=== PATIENT | male | born 1950 | race Caucasian/White ===

== ENCOUNTER 2016-06-12 10:47 | Inpatient (IN) | payer MEDICARE, BC ==
[2016-06-12] MEDS ORDERED: HOME MEDICATION LIST NEEDED 1 EA EACH MC ONE (10:53)
[2016-06-12] MEDS ORDERED: NORMAL SALINE 1,000 ML IV SCH ×2 (11:00→18:00)
[2016-06-12] MEDS ORDERED: MORPHINE SULFATE 2 MG/ML SYR IV PRN (11:20)
[2016-06-12 11:49] LABS: BASOPHILS 0.3 % (0.0-2.0); EOSINOPHILS 0.1 % (0.0-6.0); HEMATOCRIT 42.1 % (42.0-54.0); HEMOGLOBIN 14.2 g/dL (14.0-18.0); LYMPHOCYTES 5.8 % (20.0-40.0); LYMPHOCYTES# 0.8 X 10^3uL (0.8-3.8); MEAN CELL VOLUME 87.9 fL (84.0-102.0); MEAN CORPUS. HGB CONCENTRATION 33.8 g/dL (32.0-36.0); MEAN CORPUSCULAR HEMOGLOBIN 29.7 pg (29.0-35.0); MEAN PLATELET VOLUME 7.6 fL (7.4-10.4); MONOCYTES 6.6 % (2.0-10.0); MONOCYTES# 0.9 X 10^3uL (0.2-1.0); NEUTROPHILS# 11.4 X 10^3uL (2.6-6.7); PLATELET COUNT 185 X 10^3uL (130-440); RED BLOOD COUNT 4.79 X 10^6uL (4.20-6.10); RED CELL DISTRIBUTION WIDTH 13.5 % (11.5-14.5); WHITE BLOOD COUNT 13.1 X 10^3uL (3.9-10.7)
[2016-06-12 11:50] LABS: A/G RATIO 1.1; ALKALINE PHOSPHATASE 58 U/L (38-126); ALT 51 U/L (21-72); AST 26 U/L (17-59); BILIRUBIN, TOTAL 1.1 mg/dL (0.2-1.3); BLOOD UREA NITROGEN 25 mg/dL (9-20); CHLORIDE 96 mmol/L (98-107); EST GLOMERULAR FILTRATION RATE > 60 mL/min; GLUCOSE 182 mg/dL (70-100); POTASSIUM 3.7 mmol/L (3.5-5.1); SODIUM 135 mmol/L (137-145); TOTAL PROTEIN 7.5 g/dL (6.3-8.2)
[2016-06-12 11:51] LABS: C-REACTIVE PROTEIN > 90.0 mg/L (<10.0)
[2016-06-12 11:58] LABS: NEUTROPHILS 87.2 % (54.0-75.0)
[2016-06-12] MEDS: HYDROcodone/APAP 5/325 MG 1 TAB TABLET PO PRN (12:26)
[2016-06-12] MEDS: CLINDAMYCIN/D5W 600 MG/50 ML 600 MG PIGGYBACK IV SCH ×2 (12:26→20:29)
[2016-06-12 12:35] LABS: ERYTHROCYTE SEDIMENTATION RATE 70 MM/HR (0-10)
[2016-06-12] MEDS: ACETAMINOPHEN ER 650 MG TAB.SR.8HR PO SCH ×2 (14:25→20:58)
[2016-06-12] MEDS: ENOXAPARIN SODIUM 30 MG/0.3 ML SYR SUBCUT SCH (14:26)
[2016-06-12] MEDS: VANCOMYCIN HCL 1,000 MG in NORMAL SALINE ADDVANTAGE 250 ML IV SCH ×2 (18:51→20:33)
[2016-06-12] MEDS ORDERED: VANCOMYCIN HCL 1,000 MG/20 ML VIAL ONE (18:52)
[2016-06-12] MEDS ORDERED: VANCOMYCIN HCL 2,000 MG in NORMAL SALINE 500 ML IV SCH (19:00)
[2016-06-12] MEDS ORDERED: NORMAL SALINE 500 ML IV ONE (19:54)
[2016-06-12] MEDS ORDERED: TERAZOSIN HCL 5 MG CAPSULE PO SCH (21:00)
[2016-06-12] MEDS ORDERED: SULFAMETHOXAZOLE/TMP 800/160MG 1 EA TABLET PO SCH (21:00)
[2016-06-13 00:12] LABS: ETHYL ALCOHOL < 10 mg/dL (<10)
[2016-06-13] MEDS: NORMAL SALINE 1,000 ML IV SCH ×3 (00:20→17:15)
[2016-06-13] MEDS: HYDROcodone/APAP 5/325 MG 1 TAB TABLET PO PRN ×2 (01:34→08:14)
[2016-06-13] MEDS: CLINDAMYCIN/D5W 600 MG/50 ML 600 MG PIGGYBACK IV SCH ×3 (04:04→20:13)
[2016-06-13 06:18] LABS: BASOPHILS 0.5 % (0.0-2.0); EOSINOPHILS 2.7 % (0.0-6.0); EOSINOPHILS# 0.3 X 10^3uL (0.0-0.4); HEMATOCRIT 38.8 % (42.0-54.0); HEMOGLOBIN 13.2 g/dL (14.0-18.0); LYMPHOCYTES 9.8 % (20.0-40.0); LYMPHOCYTES# 0.9 X 10^3uL (0.8-3.8); MEAN CELL VOLUME 87.4 fL (84.0-102.0); MEAN CORPUS. HGB CONCENTRATION 34.1 g/dL (32.0-36.0); MEAN CORPUSCULAR HEMOGLOBIN 29.8 pg (29.0-35.0); MEAN PLATELET VOLUME 7.3 fL (7.4-10.4); MONOCYTES 6.8 % (2.0-10.0); MONOCYTES# 0.6 X 10^3uL (0.2-1.0); NEUTROPHILS 80.2 % (54.0-75.0); NEUTROPHILS# 7.7 X 10^3uL (2.6-6.7); PLATELET COUNT 159 X 10^3uL (130-440); RED BLOOD COUNT 4.44 X 10^6uL (4.20-6.10); WHITE BLOOD COUNT 9.5 X 10^3uL (3.9-10.7)
[2016-06-13 06:47] LABS: BLOOD UREA NITROGEN 20 mg/dL (9-20); CHLORIDE 101 mmol/L (98-107); CREATININE 0.9 mg/dL (0.7-1.3); EST GLOMERULAR FILTRATION RATE > 60 mL/min; GLUCOSE 157 mg/dL (70-100); POTASSIUM 3.7 mmol/L (3.5-5.1); SODIUM 136 mmol/L (137-145)
[2016-06-13] MEDS: VANCOMYCIN HCL 2,000 MG in NORMAL SALINE 500 ML IV SCH ×3 (06:53→18:31)
[2016-06-13] MEDS ORDERED: NORMAL SALINE 250 ML IV ONE (07:58)
[2016-06-13] MEDS: ACETAMINOPHEN ER 650 MG TAB.SR.8HR PO SCH ×3 (08:17→20:14)
[2016-06-13] MEDS: ENOXAPARIN SODIUM 30 MG/0.3 ML SYR SUBCUT SCH (08:17)
[2016-06-13] MEDS ORDERED: LISINOPRIL 10 MG TABLET PO SCH (09:00)
[2016-06-13] MEDS ORDERED: HYDROCHLOROTHIAZIDE 25 MG TABLET PO SCH (09:00)
--- NOTE | 2016-06-13 09:00 | HISTORY & PHYSICAL ---
DATE OF ADMISSION: 06/12/16 ATTENDING PHYSICIAN: Erwin Tolliver MD CHIEF COMPLAINT: Left lower leg pain and swelling. HISTORY OF PRESENT ILLNESS: This 65-year-old gentleman saw me for the first time late yesterday afternoon with initial complaints of some minor URI symptoms. During the visit he also mentioned that he has a chronic left mae ulcer that healed several years ago with the help of the Wound Care Team at [place]. It reappeared about 6 months ago, but he has not sought any care for it. At home, he has been placing some nonstick dressings on it periodically but not consistently. He does try to wear support stockings. Yesterday, this left mae appeared to have some cellulitis involving about 2/3 of the mae but not any proximal to the knee. During the visit yesterday his temperature was 100 and blood pressure was 154/98 with a pulse of 100. He did not appear to be toxic, and I elected to start him on Bactrim DS orally b.i.d. I cultured the wound. Today, he went to [facility] to get the venous duplex scan that I ordered. It was negative for DVT, but he was having worsening of his left lower leg erythema and swelling, so I directly admitted him for intravenous antibiotic therapy and blood workup. PAST MEDICAL HISTORY 1. Hypertension. 2. Chronic recurrent venous stasis ulcers in the left leg. 3. Benign prostatic hypertrophy. 4. Obesity. PAST SURGICAL HISTORY 1. Patient had surgery on his left leg veins approximately 7-8 years ago. This helped prevent ulcers for a number of years, but he has had recurrent trouble for at least the last 2 years. MEDICATIONS Lisinopril/Hydrochlorothiazide 20/12.5 mg q.a.m. Spironolactone 25 mg q.p.m. Metoprolol tartrate 50 mg b.i.d. Doxazosin 2 mg q.h.s. Aspirin 325 mg q.6 hours PRN for pain or fever. ALLERGIES 1. Penicillin allergy in childhood. He is uncertain about the reaction. He thinks he may have taken Amoxicillin since then without problems, but is uncertain. 2. NSAIDs cause GI complaints. He tolerates aspirin. REVIEW OF SYSTEMS GENERAL: Some malaise and fatigue with low-grade fever but no chills. RESPIRATORY: Minor sore throat, dry cough and occasional wheezing. CARDIOVASCULAR: No chest pain or palpitations. GI: No nausea, vomiting or diarrhea. : Denies dysuria. Has some chronic urinary frequency. MUSCULOSKELETAL: No myalgias. Has acute on chronic edema of the left leg. SOCIAL HISTORY: Patient lives here in [place] but commutes to [facility] where he works at [employer]. He takes long variable shifts there, so has found it hard to coordinate any medical care in [place]. This past year, his usual primary care physician at [facility] in [place] left, and he has not re- established with another physician there. He has a full-code status. He is a nonsmoker. PHYSICAL EXAMINATION AT THE TIME TRANSFER VITAL SIGNS: Temperature 37.1, blood pressure 111/73, pulse 86, respiratory rate 20, O2 saturation 90% on room air. GENERAL: Alert and oriented x3 and in no acute distress. He did seem to have some occasional dyspnea. HEENT: Oral mucosa was moist. NECK: Without adenopathy. LUNGS: Clear. HEART: Regular rate and rhythm and no murmur. ABDOMEN: Obese but nontender without masses or hepatosplenomegaly. EXTREMITIES: Left lower leg has 3+ edema from the knee down. About 80% of the lower leg had a moderate dark macular erythema. In the left mid medial mae, he had 2 superficial ulcerations with the proximal measuring 1 x 2 cm and the more distal one being 1 x 0.5 cm. There is some thin eschar over the larger one. The left thigh has some mild edema plus an erythematous streak going up about 2[address] up the thigh anteriorly. The calf diameter on the left, 15 cm below the infrapatellar margin, was 45 cm. LABORATORY DATA: Patient's lactate was 2.2 (normal less than 2.1), white count was at 13.1 with 87% neutrophils, 6% lymphs, hemoglobin 14, hematocrit 42, and platelets were 185,000. Sed rate was at 70 and the CRP was at greater than 90. Sodium 135, potassium 3.7, chloride 96, CO2 24, glucose random of 182 and creatinine at 1.0. LFTs were normal. IMAGING: Patient's duplex scan of the left leg was negative. MICRO: Culture from yesterday showed a few gram positive organisms, some of which are beta-hemolytic, likely streptococcus. IMPRESSION 1. Severe left lower leg cellulitis related to chronic venous stasis ulcers. Failed brief attempt at outpatient therapy of Bactrim. 2. Chronic venous insufficiency with left lower leg edema and secondary chronic ulcerations, last healed 6 months ago. 3. Rule out sepsis. He may have some early sepsis with a borderline lactate elevation and below normal blood pressure. 4. History of hypertension. 5. Obesity. PLAN: I initially started the patient on Clindamycin 600 mg IV q.8 hours, then adding Vancomycin to improve strep coverage. I consulted Marcie Calhoun, Wound Care Nurse. For tonight, we just put on a dressing of Bacitracin and Telfa covered with gauze then a relatively loosely applied Milo wrap. Probably will continue that dressing daily through the weekend, but perhaps replacing the Telfa with Adaptic. On Wednesday on 06/15/16 I hope to get an arterial ultrasound to rule out arterial insufficiency as a contributing factor. He did have barely perceptible dorsalis pedis pulse today on the left, with a mildly decreased capillary refill within 3-4 seconds in the foot. I emphasized the importance of elevation above the heart level for the entire left leg. I have cut back on patient's usual antihypertensive medications, because the possibility of early sepsis. We are giving him some IV fluids cautiously, trying to balance between avoiding septic shock and worsening his edema. For pain, patient will get Morphine 2 mg q.3 hours PRN or Hydrocodone/APAP 5/325 mg q.3 hours PRN. In addition, I will supplement with long acting Tylenol regularly 650 t.i.d. Will try to get records from his physician and [facility] ([facility]asw[facility]). JOSE
[2016-06-13 09:02] LABS: GLYCOSYLATED HGB 10.4 %
[2016-06-13] MEDS ORDERED: DEXTROSE 50% WATER 25 GM/50 ML SYR IV PRN (13:06)
--- NOTE | 2016-06-13 13:14 | PROGRESS NOTE: IM APSO ---
Assessment and Plan - Date of Encounter Date of Encounter: 06/13/16 (1) Sepsis Status: Acute Assessment and plan: Suspected related to cellulitis/venous stasis ulcer. Currently on vancomycin and clindamycin. Wound culture growing Strep and gram positive cocci- await further sensitivities in hopes to taper antibiotic therapy. Blood pressures have been more normal today, may be able to decrease fluid rate. ESR and leukocytosis improving as well. Continue to closely monitor Current Visit: Yes (2) Cellulitis Status: Acute Assessment and plan: Attempted outpatient management 06/11/16 but was worse in follow up on 06/12/16 and thus admitted for IV antibiotics and monitoring. Showing improvement in redness with current regimen. Preliminary results consistent with strep- await final sensitivities. Taper antibiotics as able but will keep broad coverage at this time. Current Visit: Yes (3) Chronic cutaneous venous stasis ulcer Status: Chronic Assessment and plan: Patient states has had issues for years but this is first time needing hospitalization. continue close wound monitoring and regimen as above. Does have arterial US ordered for Wednesday. Current Visit: Yes (4) Diabetes Status: Acute Assessment and plan: Newly diagnosed a patient states he was never aware of diabetes. Hemoglobin A1c 10.4, showing poor control. With current infection, will order sliding scale insulin and monitor BS levels. May need to add long acting insulin. Again new diagnosis and patient will need further diabetes teaching/monitoring and med management with discharge. Outpatient hypertensive regimen does include Milo inhibitor, is not currently on statin, checking fasting lipids. Will need daily aspirin. Current Visit: Yes (5) Hypertension Status: Chronic Assessment and plan: was on multidrug regimen- hypotensive on arrival due to infection/sepsis. Now stabilized. Will add medications as needed. Current Visit: Yes - Time Spent With Patient Total time spent with greater than 50% in coordination of care (as documented) at patient's floor/unit and/or counseling patient: Greater than 35 minutes Estimated anticipated discharge: 2-3 more days or longer IM: PN Subjective Interval history: feeling slightly better today. Denies dizziness last night with hypotension but was in bed and did not get up. Appearance of leg looks better today patient but he is still having some pain in the leg. Patient states he lives in [place] and typically gets his medical care in [place] but with road closure came to [facility] for evaluation this week. Has had venous stasis changes in his leg for years. Reviewing labs and noted patient to have hemoglobin A1c of 10.4. Patient denies being told of diabetes in the past, but admits he does not regularly go to the doctor. General: fatigue, malaise, pain HEENT: no headache Cardiovascular: no chest pain, no chest pressure Respiratory: no cough, no SOB Gastrointestinal: no abdominal pain, no diarrhea (did have some looser stools yesterday), no constipation Genitourinary: no dysuria Musculoskeletal: pain, swelling Integumentary: rashes, wound Neurological: no headache IM: PN Objective Exam - I&O/Vital Signs I&O: Intake & Output 06/12/16 06/13/16 06/13/16 21:59 05:59 13:59 Intake Total 400 Output Total 600 Balance -200 Weight 115.212 kg Intake: Oral 400 Output: Urine 600 Other: Urine Appearance Clear Urine Color Light Jaimie Voiding Method Toilet Toilet # Voids 0 Vital Signs: Last Vital Signs Temp 36.8 C 06/13/16 11:00 Pulse 84 06/13/16 11:00 Resp 18 06/13/16 11:00 BP 134/74 06/13/16 11:00 Pulse Ox 92 06/13/16 11:00 Oxygen Flow Rate 1.5 Oxygen Delivery Method Nasal Cannula - Constitutional General appearance: Present: cooperative, obese. Absent: acute distress - Head Head exam: Present: atraumatic, normal inspection - Eye Eye exam: Absent: conjunctival injection - ENT ENT exam: Present: mucous membranes moist, normal oropharynx - Neck Neck exam: Present: normal inspection. Absent: lymphadenopathy - Respiratory Respiratory exam: Present: CTAB. Absent: accessory muscle use - Cardiovascular Cardiovascular exam: Present: S1, S2. Absent: systolic murmur - GI/Abdominal GI/Abdominal exam: Present: soft. Absent: tenderness - Extremities Exam Extremities exam: Present: edema, tenderness - Neurological Exam Neurological exam: Present: alert, oriented X3 - Psychiatric Psychiatric exam: Present: normal affect, normal mood - Skin Skin exam: Present: erythema (redness improved from lines drawn previously. did not examine wound during initial evaluation as was in C/D dressing) - Lab Labs: Laboratory Last Values WBC 9.5 X 10^3uL (3.9-10.7) 06/13/16 06:03 RBC 4.44 X 10^6uL (4.20-6.10) 06/13/16 06:03 Hgb 13.2 g/dL (14.0-18.0) L 06/13/16 06:03 Hct 38.8 % (42.0-54.0) L 06/13/16 06:03 MCV 87.4 fL (84.0-102.0) 06/13/16 06:03 MCH 29.8 pg (29.0-35.0) 06/13/16 06:03 MCHC 34.1 g/dL (32.0-36.0) 06/13/16 06:03 RDW 14.0 % (11.5-14.5) 06/13/16 06:03 Plt Count 159 X 10^3uL (130-440) 06/13/16 06:03 MPV 7.3 fL (7.4-10.4) L 06/13/16 06:03 Neutrophils % 80.2 % (54.0-75.0) H 06/13/16 06:03 Lymphocytes % 9.8 % (20.0-40.0) L 06/13/16 06:03 Eosinophils % 2.7 % (0.0-6.0) 06/13/16 06:03 Basophils % 0.5 % (0.0-2.0) 06/13/16 06:03 Neutrophils # 7.7 X 10^3uL (2.6-6.7) H 06/13/16 06:03 Lymphocytes # 0.9 X 10^3uL (0.8-3.8) 06/13/16 06:03 Monocytes 6.8 % (2.0-10.0) 06/13/16 06:03 Monocytes # 0.6 X 10^3uL (0.2-1.0) 06/13/16 06:03 Eosinophils # 0.3 X 10^3uL (0.0-0.4) 06/13/16 06:03 Basophils # 0.0 X 10^3uL (0.0-0.1) 06/13/16 06:03 ESR 42 MM/HR (0-10) H 06/13/16 06:03 Sodium 136 mmol/L (137-145) L 06/13/16 06:03 Potassium 3.7 mmol/L (3.5-5.1) 06/13/16 06:03 Chloride 101 mmol/L (98-107) 06/13/16 06:03 Carbon Dioxide 24 mmol/L (22-30) 06/13/16 06:03 BUN 20 mg/dL (9-20) 06/13/16 06:03 Creatinine 0.9 mg/dL (0.7-1.3) 06/13/16 06:03 GFR Calculation > 60 mL/min 06/13/16 06:03 Glucose 157 mg/dL (70-100) H 06/13/16 06:03 Hemoglobin A1c 10.4 % 06/12/16 11:10 Lactic Acid 2.2 mmol/L (0.7-2.1) H 06/12/16 11:10 Calcium 8.0 mg/dL (8.4-10.2) L 06/13/16 06:03 Total Bilirubin 1.1 mg/dL (0.2-1.3) 06/12/16 11:10 AST 26 U/L (17-59) 06/12/16 11:10 ALT 51 U/L (21-72) 06/12/16 11:10 Alkaline Phosphatase 58 U/L (38-126) 06/12/16 11:10 C-Reactive Protein > 90.0 mg/L (<10.0) H 06/12/16 11:10 Total Protein 7.5 g/dL (6.3-8.2) 06/12/16 11:10 Albumin 4.0 g/dL (3.5-5.0) 06/12/16 11:10 Albumin/Globulin Ratio 1.1 06/12/16 11:10 Ethyl Alcohol < 10 mg/dL (<10) 06/12/16 11:10 Quality Questions - VTE Prophylaxis Assessment VTE Present on Admission?: No Patient at risk for venous thromboembolism?: Yes VTE Risk Level: High Risk VTE Medical Contraindication: N/A-VTE Prophylaxis ordered (2) Cellulitis Qualifiers: Site of cellulitis of extremity: lower extremity Laterality: left (4) Diabetes Qualifiers: Diabetes mellitus type: type 2 Diabetes mellitus complication detail: with other skin ulcer Diabetes mellitus halfway insulin use: without parking line painter use
[2016-06-13] MEDS ORDERED: VANCOMYCIN HCL 2,000 MG in NORMAL SALINE 500 ML IV SCH (15:00)
[2016-06-13] MEDS: INSULIN LISPRO 100 UNIT/ML ML SUBCUT SCH ×2 (16:34→20:16)
[2016-06-13] MEDS ORDERED: BENZOCAINE/MENTHOL 1 EACH LOZENGE PO PRN (18:43)
[2016-06-13] MEDS ORDERED: BENZOCAINE/MENTHOL 1 EACH LOZENGE PO ONE (18:51)
[2016-06-13] MEDS: TERAZOSIN HCL 5 MG CAPSULE PO SCH (20:15)
[2016-06-13] MEDS ORDERED: TERAZOSIN HCL 5 MG CAPSULE PO SCH ×2 (21:00)
[2016-06-14] MEDS: NORMAL SALINE 1,000 ML IV SCH (02:30)
[2016-06-14] MEDS: CLINDAMYCIN/D5W 600 MG/50 ML 600 MG PIGGYBACK IV SCH ×3 (03:16→20:14)
[2016-06-14 06:44] LABS: BASOPHIL# 0.1 X 10^3uL (0.0-0.1); EOSINOPHILS 3.7 % (0.0-6.0); EOSINOPHILS# 0.3 X 10^3uL (0.0-0.4); HEMATOCRIT 37.3 % (42.0-54.0); HEMOGLOBIN 12.6 g/dL (14.0-18.0); LYMPHOCYTES 9.3 % (20.0-40.0); LYMPHOCYTES# 0.8 X 10^3uL (0.8-3.8); MEAN CELL VOLUME 87.8 fL (84.0-102.0); MEAN CORPUS. HGB CONCENTRATION 33.7 g/dL (32.0-36.0); MEAN CORPUSCULAR HEMOGLOBIN 29.6 pg (29.0-35.0); MEAN PLATELET VOLUME 7.4 fL (7.4-10.4); MONOCYTES 5.4 % (2.0-10.0); MONOCYTES# 0.5 X 10^3uL (0.2-1.0); NEUTROPHILS 80.6 % (54.0-75.0); NEUTROPHILS# 6.8 X 10^3uL (2.6-6.7); PLATELET COUNT 170 X 10^3uL (130-440); RED BLOOD COUNT 4.24 X 10^6uL (4.20-6.10); RED CELL DISTRIBUTION WIDTH 13.6 % (11.5-14.5); WHITE BLOOD COUNT 8.5 X 10^3uL (3.9-10.7)
[2016-06-14] MEDS: VANCOMYCIN HCL 2,000 MG in NORMAL SALINE 500 ML IV SCH ×2 (06:50→18:24)
[2016-06-14 06:59] LABS: ALBUMIN 3.1 g/dL (3.5-5.0); ALKALINE PHOSPHATASE 45 U/L (38-126); ALT 49 U/L (21-72); AST 22 U/L (17-59); BILIRUBIN, TOTAL 0.6 mg/dL (0.2-1.3); BLOOD UREA NITROGEN 13 mg/dL (9-20); CALCULATED LDL 82 mg/dL; CHLORIDE 105 mmol/L (98-107); CHOL/HDL RATIO 10 (<4); CHOLESTEROL 137 mg/dL; CREATININE 0.7 mg/dL (0.7-1.3); EST GLOMERULAR FILTRATION RATE > 60 mL/min; GLUCOSE 142 mg/dL (70-100); HDL CHOLESTEROL 14 mg/dL; POTASSIUM 3.5 mmol/L (3.5-5.1); SODIUM 138 mmol/L (137-145); TOTAL PROTEIN 6.1 g/dL (6.3-8.2); TRIGLYCERIDES 203 mg/dL; VLDL CHOLESTEROL 41 mg/dL (<30)
[2016-06-14] MEDS: INSULIN LISPRO 100 UNIT/ML ML SUBCUT SCH ×4 (07:49→20:59)
[2016-06-14] MEDS: ACETAMINOPHEN ER 650 MG TAB.SR.8HR PO SCH ×3 (08:00→20:14)
[2016-06-14] MEDS: ENOXAPARIN SODIUM 30 MG/0.3 ML SYR SUBCUT SCH (08:01)
[2016-06-14] MEDS ORDERED: IPRATROPIUM/ALBUTEROL 0.5/3 MG 3 ML AMPUL.NEB INHALATION PRN (08:47)
[2016-06-14] MEDS: PROBIOTIC 1 CAP CAPSULE PO SCH (09:00)
[2016-06-14] MEDS: ENOXAPARIN SODIUM 40 MG/0.4 ML SYR SUBCUT SCH (09:00)
[2016-06-14] MEDS ORDERED: NORMAL SALINE 1,000 ML IV SCH (09:43)
--- NOTE | 2016-06-14 10:04 | PROGRESS NOTE: IM APSO ---
Assessment and Plan - Date of Encounter Date of Encounter: 06/14/16 (1) Sepsis Status: Resolved Assessment and plan: Significant improvement in status since admission. No longer with hypotension, leukocytosis, tachycardia or tachypena. Suspected related to cellulitis/venous stasis ulcer. Currently on vancomycin and clindamycin. Wound culture growing beta hemolytic Strep non group a, staph epidermidis and gram positive cocci- sensitivities show only resistant to erythromycin. Will continue double coverage for additional day, but will likely be able to transition to oral clindamycin for ongoing treatment pending negative blood cultures. Blood pressures are now trending up (patient has baseline hypertension). Decrease fluid rate. Current Visit: Yes (2) Cellulitis Status: Acute Assessment and plan: Attempted outpatient management 06/11/16 but was worse in follow up on 06/12/16 and thus admitted for IV antibiotics and monitoring. Showing ongoing improvement in redness with current regimen. Preliminary results consistent with strep/ staph epidermidis gram positive cocci- final sensitivities only resistant to erythromycin. Was on bactrim as outpatient (should have covered)- Will continue double coverage antibiotics for additional day to ensure stability, then can likely transition to oral regimen (clindamycin). Patient will be transitioning care back to Dr. Tolliver tomorrow. Current Visit: Yes (3) Chronic cutaneous venous stasis ulcer Status: Chronic Assessment and plan: Patient states has had issues for years but this is first time needing hospitalization. continue close wound monitoring and regimen as above. Does have arterial US ordered for Wednesday and wound care evaluation ordered. Newly diagnosed diabetes- likely contributing to his slow healing status Current Visit: Yes (4) Diabetes Status: Acute Assessment and plan: Newly diagnosed as patient states he was never aware of diabetes. Hemoglobin A1c 10.4, showing poor control. With current infection, will order sliding scale insulin and monitor BS levels. May need to add long acting insulin but patient is hesitant. Again new diagnosis and patient will need further diabetes teaching/monitoring and med management with discharge. Outpatient hypertensive regimen does include Milo inhibitor, is not currently on statin. Fasting lipids with significantly low HDL, but LDL 82. Patient very hesitant to start statin as he wants to try lifestyle changes first (even with reviewing increased cardiovascular risk). Will need daily aspirin. Current Visit: Yes (5) Hypertension Status: Chronic Assessment and plan: was on multidrug regimen- hypotensive on arrival due to infection/sepsis. Now stabilized. Showing some elevations in bp today. Will decrease IV fluids. Restart lisinopril/hctz as may have slight fluid overload at this time. Current Visit: Yes (6) Cough Status: Acute Assessment and plan: Patient has been having progressive cough since admission and hypoxia. is on broad spectrum antibiotics for cellulitis/wound infection. Will add duonebs as patient complaining of wheezing. ?slight fluid overload- consider cxr/bnp if ongoing hypoxia without clear etiology tomorrow. Current Visit: Yes (7) Anemia Status: Acute Assessment and plan: Normocytic anemia- likely related to fluid resuscitation. Continue to monitor. Current Visit: Yes - Time Spent With Patient Total time spent with greater than 50% in coordination of care (as documented) at patient's floor/unit and/or counseling patient: Greater than 35 minutes Estimated anticipated discharge: 1-2 days IM: PN Subjective Interval history: Feeling like he has a little more energy today. Still ongoing cough and patient states he feels a little wheezy- no shortness of breath or chest pain. No history of Asthma/copd. Ongoing pain in leg but getting better. Feeling most uncomfortable in abdomen however- did have bm this am after not having one for few days so hoping that will help. No real abdominal pain or cramping, just slight discomfort noted. General: fatigue, malaise, pain HEENT: no headache Cardiovascular: no chest pain, no chest pressure Respiratory: cough, wheeze, no SOB Gastrointestinal: no abdominal pain, no diarrhea (did have some looser stools yesterday), no constipation Genitourinary: no dysuria Musculoskeletal: pain, swelling Integumentary: rashes, wound Neurological: no headache IM: PN Objective Exam - I&O/Vital Signs I&O: Intake & Output 06/13/16 06/14/16 06/14/16 21:59 05:59 13:59 Intake Total 1183 2924 Output Total 950 600 600 Balance 233 2324 -600 Intake: IV 783 2324 Left Forearm 2239 Right Forearm 783 85 Oral 400 600 Output: Urine 950 600 600 Other: Urine Appearance Clear Clear Clear Urine Color Light Jaimie Light Jaimie Yellow Light Jaimie Stool Size Small Small Stool Characteristics Formed Formed Voiding Method Toilet Toilet Toilet # Voids 1 1 # Bowel Movements 1 1 Vital Signs: Last Vital Signs Temp 36.9 C 06/14/16 06:26 Pulse 88 06/14/16 06:26 Resp 22 06/14/16 06:26 BP 150/84 06/14/16 06:26 Pulse Ox 95 06/14/16 06:26 Oxygen Flow Rate 2.7 Oxygen Delivery Method Nasal Cannula - Constitutional General appearance: Present: cooperative, obese. Absent: acute distress - Head Head exam: Present: atraumatic, normal inspection - Eye Eye exam: Absent: conjunctival injection - ENT ENT exam: Present: mucous membranes moist, normal oropharynx - Neck Neck exam: Present: normal inspection. Absent: lymphadenopathy - Respiratory Respiratory exam: Present: wheezes (few end expiratory wheezes heard). Absent: accessory muscle use - Cardiovascular Cardiovascular exam: Present: S1 (distant), S2. Absent: systolic murmur - GI/Abdominal GI/Abdominal exam: Present: distended (obese), soft. Absent: tenderness - Extremities Exam Extremities exam: Present: edema, tenderness, other (does have faint dorsalis pedis pulse on left) - Neurological Exam Neurological exam: Present: alert, oriented X3 - Psychiatric Psychiatric exam: Present: normal affect, normal mood - Skin Skin exam: Present: erythema (redness improved from lines drawn previously. did not examine wound during initial evaluation as was in C/D dressing), other ( pictures of ulceration taken by nurse yesterday and reviewed. no significant drainage or worsening since last evaluation) - Allied Health Notes Allied health notes reviewed: nursing - Lab Labs: Laboratory Last Values WBC 8.5 X 10^3uL (3.9-10.7) 06/14/16 06:00 RBC 4.24 X 10^6uL (4.20-6.10) 06/14/16 06:00 Hgb 12.6 g/dL (14.0-18.0) L 06/14/16 06:00 Hct 37.3 % (42.0-54.0) L 06/14/16 06:00 MCV 87.8 fL (84.0-102.0) 06/14/16 06:00 MCH 29.6 pg (29.0-35.0) 06/14/16 06:00 MCHC 33.7 g/dL (32.0-36.0) 06/14/16 06:00 RDW 13.6 % (11.5-14.5) 06/14/16 06:00 Plt Count 170 X 10^3uL (130-440) 06/14/16 06:00 MPV 7.4 fL (7.4-10.4) 06/14/16 06:00 Neutrophils % 80.6 % (54.0-75.0) H 06/14/16 06:00 Lymphocytes % 9.3 % (20.0-40.0) L 06/14/16 06:00 Eosinophils % 3.7 % (0.0-6.0) 06/14/16 06:00 Basophils % 1.0 % (0.0-2.0) 06/14/16 06:00 Neutrophils # 6.8 X 10^3uL (2.6-6.7) H 06/14/16 06:00 Lymphocytes # 0.8 X 10^3uL (0.8-3.8) 06/14/16 06:00 Monocytes 5.4 % (2.0-10.0) 06/14/16 06:00 Monocytes # 0.5 X 10^3uL (0.2-1.0) 06/14/16 06:00 Eosinophils # 0.3 X 10^3uL (0.0-0.4) 06/14/16 06:00 Basophils # 0.1 X 10^3uL (0.0-0.1) 06/14/16 06:00 ESR 42 MM/HR (0-10) H 06/13/16 06:03 Sodium 138 mmol/L (137-145) 06/14/16 06:00 Potassium 3.5 mmol/L (3.5-5.1) 06/14/16 06:00 Chloride 105 mmol/L (98-107) 06/14/16 06:00 Carbon Dioxide 24 mmol/L (22-30) 06/14/16 06:00 BUN 13 mg/dL (9-20) 06/14/16 06:00 Creatinine 0.7 mg/dL (0.7-1.3) 06/14/16 06:00 GFR Calculation > 60 mL/min 06/14/16 06:00 Glucose 142 mg/dL (70-100) H 06/14/16 06:00 Hemoglobin A1c 10.4 % 06/12/16 11:10 Lactic Acid 2.2 mmol/L (0.7-2.1) H 06/12/16 11:10 Calcium 8.0 mg/dL (8.4-10.2) L 06/14/16 06:00 Total Bilirubin 0.6 mg/dL (0.2-1.3) 06/14/16 06:00 AST 22 U/L (17-59) 06/14/16 06:00 ALT 49 U/L (21-72) 06/14/16 06:00 Alkaline Phosphatase 45 U/L (38-126) 06/14/16 06:00 C-Reactive Protein > 90.0 mg/L (<10.0) H 06/12/16 11:10 Total Protein 6.1 g/dL (6.3-8.2) L 06/14/16 06:00 Albumin 3.1 g/dL (3.5-5.0) L D 06/14/16 06:00 Albumin/Globulin Ratio 1.0 06/14/16 06:00 Triglycerides 203 mg/dL 06/14/16 06:00 Cholesterol 137 mg/dL 06/14/16 06:00 LDL Cholesterol, Calc 82 mg/dL 06/14/16 06:00 VLDL Cholesterol, Calc 41 mg/dL (<30) H 06/14/16 06:00 HDL Cholesterol 14 mg/dL 06/14/16 06:00 Cholesterol/HDL Ratio 10 (<4) H 06/14/16 06:00 Ethyl Alcohol < 10 mg/dL (<10) 06/12/16 11:10 (2) Cellulitis Qualifiers: Site of cellulitis of extremity: lower extremity Laterality: left (4) Diabetes Qualifiers: Diabetes mellitus type: type 2 Diabetes mellitus complication detail: with other skin ulcer Diabetes mellitus processing mgr insulin use: without processing mgr use
[2016-06-14] MEDS: TERAZOSIN HCL 5 MG CAPSULE PO SCH (20:15)
[2016-06-15] MEDS: CLINDAMYCIN/D5W 600 MG/50 ML 600 MG PIGGYBACK IV SCH ×3 (03:14→20:28)
[2016-06-15 06:16] LABS: BASOPHIL# 0.1 X 10^3uL (0.0-0.1); BASOPHILS 0.7 % (0.0-2.0); EOSINOPHILS 3.6 % (0.0-6.0); EOSINOPHILS# 0.3 X 10^3uL (0.0-0.4); HEMATOCRIT 37.5 % (42.0-54.0); HEMOGLOBIN 12.5 g/dL (14.0-18.0); LYMPHOCYTES 10.4 % (20.0-40.0); LYMPHOCYTES# 0.9 X 10^3uL (0.8-3.8); MEAN CELL VOLUME 88.6 fL (84.0-102.0); MEAN CORPUS. HGB CONCENTRATION 33.2 g/dL (32.0-36.0); MEAN CORPUSCULAR HEMOGLOBIN 29.5 pg (29.0-35.0); MEAN PLATELET VOLUME 6.8 fL (7.4-10.4); MONOCYTES# 0.5 X 10^3uL (0.2-1.0); NEUTROPHILS 79.3 % (54.0-75.0); NEUTROPHILS# 7.2 X 10^3uL (2.6-6.7); PLATELET COUNT 202 X 10^3uL (130-440); RED BLOOD COUNT 4.23 X 10^6uL (4.20-6.10); RED CELL DISTRIBUTION WIDTH 13.8 % (11.5-14.5)
[2016-06-15] MEDS: VANCOMYCIN HCL 2,000 MG in NORMAL SALINE 500 ML IV SCH (06:21)
[2016-06-15 06:27] LABS: BLOOD UREA NITROGEN 12 mg/dL (9-20); CHLORIDE 105 mmol/L (98-107); CREATININE 0.7 mg/dL (0.7-1.3); EST GLOMERULAR FILTRATION RATE > 60 mL/min; GLUCOSE 136 mg/dL (70-100); POTASSIUM 3.5 mmol/L (3.5-5.1); SODIUM 139 mmol/L (137-145)
[2016-06-15 06:46] LABS: C-REACTIVE PROTEIN 60.7 mg/L (<10.0)
[2016-06-15 06:53] LABS: ERYTHROCYTE SEDIMENTATION RATE 34 MM/HR (0-10)
--- NOTE | 2016-06-15 07:59 | PROGRESS NOTE: IM APSO ---
Assessment and Plan - Date of Encounter Date of Encounter: 06/15/16 (1) Cellulitis Status: Acute Assessment and plan: his left lower leg cellulitis is responding nicely to the combination of vancomycin and clindamycin IV. His sedimentation rate continues to drop.He grew staph epi and a beta hemolytic nongroup a strep. The sensitivities on the strep are still pending at [facility]. If it is sensitive to clindamycin, and hoped to discharge him on oral clindamycin. Current Visit: Yes (2) Chronic cutaneous venous stasis ulcer Status: Chronic Assessment and plan: this has improved. His 2 superficial ulcerations on the left mae now measure 1.5 cmin diameter for the upper 1 and 1 x 2 cm for the distal 1. The wound base now appears much more healthy and the eschar is gone. He has another tiny wound medial to the knees. I plan to switch now to a dressing that involves a little bit of therapeutic honey, covered by Adaptic, then alginate, then a Tubigrip then an Milo wrap. We will assess his arterialsupply in the left leg with ultrasound this morning. He has had trouble with ulcers in the left leg for many years, although this improved after vein surgery about 7 years ago. He has recurrent ulcers began about 6 months ago, probably related to venous problem complicated by undiagnosed diabetes. Current Visit: Yes (3) Sepsis Status: Resolved Assessment and plan: he did have some early sepsis on admission. This seems to be resolved. Current Visit: Yes (4) Cough Status: Acute Assessment and plan: he initially came to me for URI symptoms on 06/11/16nd happened to mention his left leg wound. The URI symptoms have persisted and probably rep a viral URI with some bronchospasm. He is getting nebulizer treatments here when necessary and seems to benefit from those. He will need an albuterol inhaler at discharge. Current Visit: Yes (5) Diabetes Status: Acute Assessment and plan: he has newly diagnosed diabetes with an initial A1c of 10.4 on admission. This is coming down nicely with a simple sliding scale insulin. I will add metformin today and hope to discharge him on metformin and a diabetic diet. He should see the electrician sound today for diabetic teaching. He will need to work on weight loss. Current Visit: Yes - Time Spent With Patient Total time spent with greater than 50% in coordination of care (as documented) at patient's floor/unit and/or counseling patient: Estimated anticipated discharge: possibly today. I will follow IM: PN Subjective General: no confusion, no fever, no chills HEENT: no headache Cardiovascular: no chest pain, no chest pressure Respiratory: cough, wheeze, no SOB Gastrointestinal: no abdominal pain, no diarrhea (did have some looser stools yesterday), no constipation Genitourinary: no dysuria Musculoskeletal: pain (improved to 3/10), swelling Integumentary: rashes, wound (both improving) Neurological: no headache IM: PN Objective Exam - I&O/Vital Signs I&O: Intake & Output 06/14/16 06/15/16 06/15/16 21:59 05:59 13:59 Intake Total 810 871 Output Total 650 200 Balance 160 671 Intake: IV 421 Left Forearm 321 Right Forearm 100 Oral 810 450 Output: Urine 650 200 Other: Urine Appearance Clear Clear Urine Color Pale Light Jaimie Yellow Stool Size Moderate Stool Characteristics Formed Voiding Method Toilet Toilet # Voids 1 Vital Signs: Last Vital Signs Temp 36.7 C 06/15/16 06:40 Pulse 79 06/15/16 06:40 Resp 18 06/15/16 06:40 BP 137/76 06/15/16 06:40 Pulse Ox 96 06/15/16 06:40 Oxygen Flow Rate 3 Oxygen Delivery Method Nasal Cannula - Constitutional General appearance: Present: cooperative, obese. Absent: acute distress - Head Head exam: Present: atraumatic, normal inspection - Eye Eye exam: Absent: conjunctival injection - ENT ENT exam: Present: mucous membranes moist, normal oropharynx - Neck Neck exam: Present: normal inspection. Absent: lymphadenopathy - Respiratory Respiratory exam: Present: wheezes (few end expiratory wheezes heard). Absent: accessory muscle use - Cardiovascular Cardiovascular exam: Present: S1 (distant), S2. Absent: systolic murmur - GI/Abdominal GI/Abdominal exam: Present: distended (obese), soft. Absent: tenderness - Extremities Exam Extremities exam: Present: edema (his calf diameter 10 cm below the infrapatellar margin was 44.5 cm. This is down from 45 cm on admission.), tenderness, other (does have faint dorsalis pedis pulse on left) - Neurological Exam Neurological exam: Present: alert, oriented X3 - Psychiatric Psychiatric exam: Present: normal affect, normal mood - Skin Skin exam: Present: erythema (redness improved from lines drawn previously. did not examine wound during initial evaluation as was in C/D dressing), other ( pictures of ulceration taken by nurse yesterday and reviewed. no significant drainage or worsening since last evaluation) - Allied Health Notes Allied health notes reviewed: nursing - Lab Labs: Laboratory Last Values WBC 9.0 X 10^3uL (3.9-10.7) 06/15/16 05:55 RBC 4.23 X 10^6uL (4.20-6.10) 06/15/16 05:55 Hgb 12.5 g/dL (14.0-18.0) L 06/15/16 05:55 Hct 37.5 % (42.0-54.0) L 06/15/16 05:55 MCV 88.6 fL (84.0-102.0) 06/15/16 05:55 MCH 29.5 pg (29.0-35.0) 06/15/16 05:55 MCHC 33.2 g/dL (32.0-36.0) 06/15/16 05:55 RDW 13.8 % (11.5-14.5) 06/15/16 05:55 Plt Count 202 X 10^3uL (130-440) 06/15/16 05:55 MPV 6.8 fL (7.4-10.4) L 06/15/16 05:55 Neutrophils % 79.3 % (54.0-75.0) H 06/15/16 05:55 Lymphocytes % 10.4 % (20.0-40.0) L 06/15/16 05:55 Eosinophils % 3.6 % (0.0-6.0) 06/15/16 05:55 Basophils % 0.7 % (0.0-2.0) 06/15/16 05:55 Neutrophils # 7.2 X 10^3uL (2.6-6.7) H 06/15/16 05:55 Lymphocytes # 0.9 X 10^3uL (0.8-3.8) 06/15/16 05:55 Monocytes 6.0 % (2.0-10.0) 06/15/16 05:55 Monocytes # 0.5 X 10^3uL (0.2-1.0) 06/15/16 05:55 Eosinophils # 0.3 X 10^3uL (0.0-0.4) 06/15/16 05:55 Basophils # 0.1 X 10^3uL (0.0-0.1) 06/15/16 05:55 ESR 34 MM/HR (0-10) H 06/15/16 05:55 Sodium 139 mmol/L (137-145) 06/15/16 05:55 Potassium 3.5 mmol/L (3.5-5.1) 06/15/16 05:55 Chloride 105 mmol/L (98-107) 06/15/16 05:55 Carbon Dioxide 25 mmol/L (22-30) 06/15/16 05:55 BUN 12 mg/dL (9-20) 06/15/16 05:55 Creatinine 0.7 mg/dL (0.7-1.3) 06/15/16 05:55 GFR Calculation > 60 mL/min 06/15/16 05:55 Glucose 136 mg/dL (70-100) H 06/15/16 05:55 Hemoglobin A1c 10.4 % 06/12/16 11:10 Lactic Acid 2.2 mmol/L (0.7-2.1) H 06/12/16 11:10 Calcium 8.0 mg/dL (8.4-10.2) L 06/15/16 05:55 Total Bilirubin 0.6 mg/dL (0.2-1.3) 06/14/16 06:00 AST 22 U/L (17-59) 06/14/16 06:00 ALT 49 U/L (21-72) 06/14/16 06:00 Alkaline Phosphatase 45 U/L (38-126) 06/14/16 06:00 C-Reactive Protein 60.7 mg/L (<10.0) H 06/15/16 05:55 Total Protein 6.1 g/dL (6.3-8.2) L 06/14/16 06:00 Albumin 3.1 g/dL (3.5-5.0) L D 06/14/16 06:00 Albumin/Globulin Ratio 1.0 06/14/16 06:00 Triglycerides 203 mg/dL 06/14/16 06:00 Cholesterol 137 mg/dL 06/14/16 06:00 LDL Cholesterol, Calc 82 mg/dL 06/14/16 06:00 VLDL Cholesterol, Calc 41 mg/dL (<30) H 06/14/16 06:00 HDL Cholesterol 14 mg/dL 06/14/16 06:00 Cholesterol/HDL Ratio 10 (<4) H 06/14/16 06:00 Vancomycin Trough 10.3 ug/mL (5.0-20.0) 06/14/16 18:00 Ethyl Alcohol < 10 mg/dL (<10) 06/12/16 11:10 (1) Cellulitis Qualifiers: Site of cellulitis of extremity: lower extremity Laterality: left (5) Diabetes Qualifiers: Diabetes mellitus type: type 2 Diabetes mellitus complication detail: with other skin ulcer Diabetes mellitus halfway insulin use: without buttermaker helper use
[2016-06-15] MEDS: INSULIN LISPRO 100 UNIT/ML ML SUBCUT SCH ×4 (08:15→21:23)
[2016-06-15] MEDS: HYDROCHLOROTHIAZIDE 25 MG TABLET PO SCH (08:21)
[2016-06-15] MEDS: metFORMIN 500 MG TABLET PO SCH (08:21)
[2016-06-15] MEDS: LISINOPRIL 10 MG TABLET PO SCH (08:21)
[2016-06-15] MEDS: ENOXAPARIN SODIUM 40 MG/0.4 ML SYR SUBCUT SCH (08:21)
[2016-06-15] MEDS: PROBIOTIC 1 CAP CAPSULE PO SCH (08:21)
[2016-06-15] MEDS: ACETAMINOPHEN ER 650 MG TAB.SR.8HR PO SCH ×3 (08:22→20:28)
[2016-06-15] MEDS ORDERED: SPIRONOLACTONE 25 MG TABLET PO SCH ×2 (13:00)
[2016-06-15] MEDS ORDERED: VANCOMYCIN HCL IV SCH (15:00)
[2016-06-15] MEDS ORDERED: NORMAL SALINE IV SCH (15:00)
[2016-06-15] MEDS ORDERED: MAGNESIUM HYDROXIDE 30 ML UDC ONE (17:45)
[2016-06-15] MEDS ORDERED: MAGNESIUM HYDROXIDE 30 ML UDC PO PRN (18:14)
[2016-06-15] MEDS ORDERED: VANCOMYCIN HCL 2,000 MG in NORMAL SALINE 500 ML IV SCH (19:00)
[2016-06-15] MEDS: TERAZOSIN HCL 5 MG CAPSULE PO SCH (20:28)
[2016-06-15] MEDS ORDERED: NORMAL SALINE 500 ML IV ONE (20:41)
[2016-06-16] MEDS: CLINDAMYCIN/D5W 600 MG/50 ML 600 MG PIGGYBACK IV SCH (04:15)
[2016-06-16] MEDS: INSULIN LISPRO 100 UNIT/ML ML SUBCUT SCH ×2 (07:45→11:01)
[2016-06-16] MEDS: metFORMIN 500 MG TABLET PO SCH (07:56)
[2016-06-16] MEDS: PROBIOTIC 1 CAP CAPSULE PO SCH (08:01)
[2016-06-16] MEDS: HYDROCHLOROTHIAZIDE 25 MG TABLET PO SCH (08:01)
[2016-06-16] MEDS: ENOXAPARIN SODIUM 40 MG/0.4 ML SYR SUBCUT SCH (08:01)
[2016-06-16] MEDS: ACETAMINOPHEN ER 650 MG TAB.SR.8HR PO SCH (08:02)
[2016-06-16] MEDS: LISINOPRIL 10 MG TABLET PO SCH (08:02)
[2016-06-16] MEDS ORDERED: VANCOMYCIN HCL 2,000 MG in NORMAL SALINE 500 ML IV SCH (09:00)
[2016-06-16] MEDS ORDERED: AMOXICILLIN 250 MG CAPSULE PO SCH (10:00)
--- NOTE | 2016-06-16 10:31 | DC SUMMARY: IM Note ---
Discharge Summary: IM/Peds Provider: Date of Admission: 06/12/16 Admitting Provider: RUDDY HAGAN MD Attending Provider: RUDDY HAGAN MD Discharging Provider: RUDDY HAGAN MD Primary Care Provider: Discharge Date: 06/16/16 Consults: 06/15/16 07:24 Nutrition/Dietary Consult [CONS] Routine Reason: Diabetic ed for new type II diabetic - Diagnosis (1) Cellulitis Status: Acute Qualifiers: Site of cellulitis of extremity: lower extremity Laterality: left (2) Chronic cutaneous venous stasis ulcer Status: Chronic (3) Sepsis Status: Resolved (4) Cough Status: Acute (5) Diabetes Status: Acute Qualifiers: Diabetes mellitus type: type 2 Diabetes mellitus complication detail: with other skin ulcer Diabetes mellitus terminal block assembler insulin use: without usp use (6) Hypertension Status: Chronic Hospital Course: During this hospitalization this patient was diagnosed and treated with an early sepsis related to a chronic left leg ulceration complicated by acute cellulitis. He was also diagnosed with new onset type 2 diabetes, although that has probably been going on for months or even years (A1c was 10.4). He has not been following with for at least a year since his doctor retired at [facility] in [place]. I saw him for the first time the day prior to admission, diagnosed his left leg cellulitis (although he came in for URI), and started him on Bactrim. The following day, 06/12/16, he was worse, so was admitted. I believe he was in early sepsis then and, but responded nicely to vancomycin and clindamycin IV. He needed some extra IV fluids to first 24 hours, as well. Since then he has made gradual progress in his left leg cellulitis. Initially I was worried about using any penicillin related drugs because of a questionable history of penicillin allergy. He had vomiting at age 8 after getting penicillin during her bout of flu. He insists that since then he has taken amoxicillin without problems. I elected to try amoxicillin prior to discharge, since the primary culprit with his infection likely is a beta hemolytic nongroup a strep. Unfortunately I am still awaiting sensitivities on that, since it had to be sent to [facility] and then subcultured there. I am hesitant to trust clindamycin alone as an outpatient for this bacteria, so I am trying him on penicillin prior to discharge. Assuming he tolerates that now, he will be discharged after lunch on amoxicillin 500 mg 3 times a day for 10 days and supplemented with the clindamycin 300 mg 3 times a day for 7 days. The patient's culture also grew some micrococcus and staph epi which may or may not be pathogens. Fortunately both of those were also sensitive to the amoxicillin/penicillin. , Elected to double cover with the clindamycin and amoxicillin, though, in case there were some anaerobes or other bacteria that were unidentified contributing to his diabetic left lower leg cellulitis. The clindamycin will also augment the amoxicillin in fighting the beta-hemolytic strep. We did rule out DVT with venous duplex scan. We also did an arterial ultrasound did not show any significant arterial disease in the thigh or calf, however he had monophasic flow suggesting a more proximal lesion in the aortoiliac region. He has fairly good capillary refill although and we elected to not pursue any intervention for his arterial supply at this point. If he is slow to heal, however, he may benefit from a CTA of the aortoiliac system possibly followed by some intervention. I'm hopeful that good wound care including some compression, and adequate control of his diabetes will be adequate for wound management. The patient will see the wound care nurse, Lia Calhoun, at [facility] for ongoing wound care. I will continue to follow up with him as his new PCP regarding his diabetes, hypertension and obesity. See discharge meds regarding these issues. He was responding quite well to metformin 500 mg daily during the hospitalization. I will increase that to twice a day it discharge. - Time Spent with Patient Total time spent providing and/or coordinating discharge services: Discharge - Patient/Caregiver Discharge Instructions Activity Level: As tolerated. Elevate L leg above heart level at least for 15 minutes of every hour through Wednesday. Diet: diabetic Additional Instructions: F/u with Lia at wound clinic at [facility] tomorrow. Follow up: [facility], Outpatient Wound Care Clinic [Other] - 06/17/16 12:00 pm (Check in at Outpatient Admitting - next to the Lab.) RUDDY HAGAN MD [Primary Care Provider] - 06/18/16 10:20 am Home Medications: Amoxicillin [Amoxil*] 500 mg PO TID #30 capsule Clindamycin HCl 300 mg PO TID #21 cap metFORMIN [Glucophage*] 500 mg PO BID #60 tablet Disposition: HOME, SELF-CARE Discharge Summary Data - Medication History Medication History: Home Medications Doxazosin Mesylate 2 mg PO HS 06/12/16 Lisinopril/Hydrochlorothiazide [Lisinopril-Hctz 20-12.5 mg Tab] 1 tab PO BID 07/24 Spironolactone [Aldactone*] 25 mg PO HS 06/12/16 Sulfamethoxazole/Tmp 800/160Mg [Bactrim Ds*] 1 tab PO BID 06/12/16 aspirin EC [Aspirin EC*] 325 mg PO DAILY PRN 06/12/16 metoprolol TARTRATE [Metoprolol Tartrate*] 50 mg PO BID 06/12/16 Acetaminophen ER [Tylenol ER*] 650 mg PO TID tab.sr.8hr 06/16/16 Amoxicillin [Amoxil*] 500 mg PO TID #30 capsule 06/16/16 Clindamycin HCl 300 mg PO TID #21 cap 06/16/16 Probiotic [Lottie-Q Capsule*] 1 cap PO DAILY capsule 06/16/16 metFORMIN [Glucophage*] 500 mg PO BID #60 tablet 06/16/16 Inpatient Medications 06/12/16 11:20 HYDROcodone/APAP 5/325 MG [Concord] 1 tab PO Q3H PRN Morphine Sulfate 2 mg IV Q3H PRN 06/12/16 12:00 Clindamycin/D5w 600 mg/50 ml [Cleocin 600 mg] 600 mg IV Q8H 06/12/16 15:00 Acetaminophen ER [Tylenol ER] 650 mg PO TID 06/12/16 21:00 metoprolol TARTRATE [Lopressor] 25 mg PO BID 06/13/16 13:06 Dextrose 50% Water [D50%] 50 gm IV PRN PRN 06/13/16 17:00 Insulin Lispro [HumaLOG] See Protocol SUBCUT ACHS 06/13/16 18:43 Benzocaine/Menthol [Cepacol Sorethroat Lozenges] 1 each PO PRN PRN 06/13/16 21:00 Terazosin HCl [Hytrin] 5 mg PO HS 06/14/16 08:47 Ipratropium/Albuterol 0.5/3 mg [Duoneb 2.5-0.5 mg/3 ml Soln] 3 ml INHALATION Q4H PRN 06/14/16 09:00 Enoxaparin Sodium [Lovenox] 40 mg SUBCUT DAILY Probiotic [Lottie-Q Capsule] 1 cap PO DAILY 06/15/16 07:30 metFORMIN [Glucophage] 500 mg PO DAILY@0730 06/15/16 09:00 Hydrochlorothiazide [Hydrodiuril] 12.5 mg PO DAILY Lisinopril [Prinivil] 20 mg PO DAILY 06/15/16 13:00 Spironolactone [Aldactone] 12.5 mg PO DAILY@1300 06/15/16 18:14 Magnesium Hydroxide [Milk of Magnesia] 30 ml PO PRN PRN 06/16/16 09:00 Vancomycin HCl [Vancocin] 2,000 mg Normal Saline [Sodium Chloride 0.9% 500 ml ] 500 ml IV Q12H 06/16/16 10:00 Amoxicillin [Amoxil] 500 mg PO TID Procedures and tests throughout hospitalization: Completed Lab Orders 06/12/16 11:10 C-REACTIVE PROTEIN [CHEM] Urgent CBC AUTO DIF, MDIF/RMOR IF IND [HEM] Urgent COMPREHENSIVE METABOLIC PANEL [CHEM] Urgent ERYTHROCYTE SEDIMENTATION RATE [HEM] Urgent ETHYL ALCOHOL [CHEM] Routine GLYCOSYLATED HGB [CHEM] Routine LACTATE [CHEM] Urgent 06/13/16 06:03 BMP [BASIC METABOLIC PANEL] [CHEM] AMDRAW CBC AUTO DIF, MDIF/RMOR IF IND [HEM] AMDRAW ESR [ERYTHROCYTE SEDIMENTATION RATE] [HEM] AMDRAW 06/14/16 06:00 CBC AUTO DIF, MDIF/RMOR IF IND [HEM] AMDRAW COMPREHENSIVE METABOLIC PANEL [CHEM] AMDRAW LIPID PANEL [CHEM] AMDRAW 06/14/16 18:00 VANCOMYCIN TROUGH [CHEM] Routine 06/15/16 05:55 BASIC METABOLIC PANEL [CHEM] AMDRAW CBC AUTO DIF, MDIF/RMOR IF IND [HEM] AMDRAW ERYTHROCYTE SEDIMENTATION RATE [HEM] AMDRAW crp [C-REACTIVE PROTEIN] [CHEM] AMDRAW Pending Orders 06/12/16 10:53 Admit: Inpatient Routine Activity: Ambulate with Assist TID Activity: BRP w/ Assist Only . Resuscitation Status Routine Vital Signs ROUTINE VITALS (Q4H) 06/12/16 11:20 Elevate affected extremity . HYDROcodone/APAP 5/325 MG [Concord] 1 tab PO Q3H PRN Morphine Sulfate 2 mg IV Q3H PRN 06/12/16 11:25 BLOOD CULTURE [BC] Urgent 06/12/16 12:00 Clindamycin/D5w 600 mg/50 ml [Cleocin 600 mg] 600 mg IV Q8H 06/12/16 15:00 Acetaminophen ER [Tylenol ER] 650 mg PO TID 06/12/16 21:00 metoprolol TARTRATE [Lopressor] 25 mg PO BID 06/13/16 13:06 Finger Stick Blood Sugar ACHS FINGER STICK Hypoglycemia treatment... PER PROTOCOL Notify Physician . Dextrose 50% Water [D50%] 50 gm IV PRN PRN 06/13/16 13:42 Diabetic Teaching Consult Once 06/13/16 17:00 Insulin Lispro [HumaLOG] See Protocol SUBCUT ACHS 06/13/16 18:43 Benzocaine/Menthol [Cepacol Sorethroat Lozenges] 1 each PO PRN PRN 06/13/16 21:00 Terazosin HCl [Hytrin] 5 mg PO HS 06/13/16 Dinner Diabetic [DIET] 06/14/16 08:47 Ipratropium/Albuterol 0.5/3 mg [Duoneb 2.5-0.5 mg/3 ml Soln] 3 ml INHALATION Q4H PRN 06/14/16 09:00 Enoxaparin Sodium [Lovenox] 40 mg SUBCUT DAILY Probiotic [Lottie-Q Capsule] 1 cap PO DAILY 06/15/16 07:27 Obtain weight 0600 06/15/16 07:30 metFORMIN [Glucophage] 500 mg PO DAILY@0730 06/15/16 08:00 Arterial Duplex, Unilateral LE [CARDIO] Routine 06/15/16 09:00 Hydrochlorothiazide [Hydrodiuril] 12.5 mg PO DAILY Lisinopril [Prinivil] 20 mg PO DAILY 06/15/16 13:00 Spironolactone [Aldactone] 12.5 mg PO DAILY@1300 06/15/16 17:48 May shower with wound uncovere . 06/15/16 18:14 Magnesium Hydroxide [Milk of Magnesia] 30 ml PO PRN PRN 06/15/16 19:05 Wound Care [Dressing Change] 3XW 06/16/16 09:00 Vancomycin HCl [Vancocin] 2,000 mg Normal Saline [Sodium Chloride 0.9% 500 ml ] 500 ml IV Q12H 06/16/16 10:00 Amoxicillin [Amoxil] 500 mg PO TID Labs on day of discharge: Preliminary micro results at discharge 06/12/16 11:25 Blood Culture - Preliminary Blood NO GROWTH TO DATE 06/12/16 11:10 Blood Culture - Preliminary Blood NO GROWTH TO DATE IM: Discharge Physical Exam - I&O/Vital Signs I&O: Intake & Output 06/15/16 06/16/16 06/16/16 21:59 05:59 13:59 Intake Total 1140 900 Output Total 1350 500 Balance -210 400 Weight 123.972 kg Intake: IV 400 Right Forearm 400 Oral 1140 500 Output: Urine 1350 500 Other: Urine Appearance Clear Clear Urine Color Light Jaimie Yellow Voiding Method Urinal Toilet # Voids 4 2 # Bowel Movements 0 Vital Signs: Last Vital Signs Temp 37.0 C 06/16/16 06:46 Pulse 86 06/16/16 06:46 Resp 17 06/16/16 06:46 BP 165/85 06/16/16 06:46 Pulse Ox 92 06/16/16 06:46 Oxygen Flow Rate 1 Oxygen Delivery Method Nasal Cannula - Constitutional General appearance: Present: cooperative, obese. Absent: acute distress - Head Head exam: Present: atraumatic, normal inspection - Eye Eye exam: Absent: conjunctival injection - ENT ENT exam: Present: mucous membranes moist, normal oropharynx - Neck Neck exam: Present: normal inspection. Absent: lymphadenopathy - Respiratory Respiratory exam: Present: wheezes (few end expiratory wheezes heard). Absent: accessory muscle use - Cardiovascular Cardiovascular exam: Present: S1 (distant), S2. Absent: systolic murmur - GI/Abdominal GI/Abdominal exam: Present: distended (obese), soft. Absent: tenderness - Extremities Exam Extremities exam: Present: edema (his calf diameter 10 cm below the infrapatellar margin was 44.5 cm. This is down from 45 cm on admission.), tenderness, other (does have faint dorsalis pedis pulse on left) - Neurological Exam Neurological exam: Present: alert, oriented X3 - Psychiatric Psychiatric exam: Present: normal affect, normal mood - Skin Skin exam: Present: erythema (redness improved from lines drawn previously. did not examine wound during initial evaluation as was in C/D dressing), other ( pictures of ulceration taken by nurse yesterday and reviewed. no significant drainage or worsening since last evaluation) - Allied Health Notes Allied health notes reviewed: nursing
[2016-06-16 10:43] VITALS: BP 152/88; PULSE 80; RESP 30; TEMP 98.2; O2SAT 95
== END 2016-06-16 13:00 | disposition home or self-care (01) | DRG 603 ==
LOC: IN 10:47
PROVIDERS: ADMIT Family Medicine; ATTEND Family Medicine
DX: L03.116 Cellulitis of left lower limb (principal); I10 Essential (primary) hypertension; E66.9 Obesity, unspecified; I87.8 Other specified disorders of veins; J06.9 Acute upper respiratory infection, unspecified; E11.9 Type 2 diabetes mellitus without complications; D64.9 Anemia, unspecified; Z79.899 Other long term (current) drug therapy
CPT/HCPCS: 36415; 80048; 80053; 80061; 80202; 80320; 83036; 83605; 85025; 85651; 86140; 87040; 93041; 93926; G0108; J1650; J1815; J2270; J3370; J7030; J7040; J7050; J7620

== ENCOUNTER 2016-07-11 19:39 | Emergency (ER) | payer BC ==
[2016-07-11 20:41] LABS: BASOPHIL# 0.1 X 10^3uL (0.0-0.1); BASOPHILS 0.7 % (0.0-2.0); EOSINOPHILS 1.1 % (0.0-6.0); EOSINOPHILS# 0.1 X 10^3uL (0.0-0.4); HEMATOCRIT 43.7 % (42.0-54.0); HEMOGLOBIN 14.8 g/dL (14.0-18.0); LYMPHOCYTES 13.7 % (20.0-40.0); LYMPHOCYTES# 1.9 X 10^3uL (0.8-3.8); MEAN CELL VOLUME 86.7 fL (80.0-100.0); MEAN CORPUS. HGB CONCENTRATION 33.8 g/dL (32.0-36.0); MEAN CORPUSCULAR HEMOGLOBIN 29.3 pg (29.0-35.0); MEAN PLATELET VOLUME 7.4 fL (7.4-10.4); MONOCYTES 7.2 % (2.0-10.0); NEUTROPHILS 77.3 % (54.0-75.0); NEUTROPHILS# 10.5 X 10^3uL (2.6-6.7); RED BLOOD COUNT 5.03 X 10^6uL (4.20-6.10); RED CELL DISTRIBUTION WIDTH 14.1 % (11.5-14.5); WHITE BLOOD COUNT 13.6 X 10^3uL (3.9-10.7)
--- NOTE | 2016-07-11 21:45 | ER NURSING DOCUMENTATION ---
Nurse's Notes [facility] Name:Bryant Santiago Age:65 yrs Sex:Male :1950 Arrival Date:07/11/2016 Time:19:39 Bed4 Private MD:Erwin Tolliver Diagnosis:Venous Insufficiency;Cellulitis of Leg Presentation: 07/11 19:55 Presenting complaint: Patient states: left leg pain, pressure. hx of venous stasis. lb posterior lower calf warm and red. Transition of care: Home. Notified ED Physician of Dr. Luna notified. 19:55 Acuity: SABINA 3 lb 19:55 Method Of Arrival: Walk In Triage Assessment: 20:12 General: Appears uncomfortable, Behavior is cooperative, pleasant. Pain: Complains of lb pain in left Achilles Pain does not radiate. Pain currently is 8 out of 10 on a pain scale. Musculoskeletal: Circulation, motion, and sensation intact Capillary refill < 3 seconds Reports pain in left Achilles since 2 days. Injury Description: hx venous stasis, no know injury. Historical: - Allergies: PENICILLINS; NSAIDS; - Home Meds: 1. lisinopril/hctz 2. Metoprolol Tartrate Oral 3. Spironolactone Oral 4. doxazosin oral - Tetanus: unknown. - Ebola Screening: : Patient negative for fever greater than or equal to 101.5 degrees Fahrenheit, and additional compatible Ebola Virus Disease symptoms. Patient denies exposure to infectious person. Patient denies travel to an Ebola-affected area in the 21 days before illness onset. No symptoms or risks identified at this time. . - Immunization history: Flu Vaccine None. - Social history: Smoking status: Patient states was never smoker of tobacco. Patient/guardian denies using alcohol. - Advance directive:: No. - Code Status:: Full code. Screenin:14 Infectious Disease Risk None. Abuse screen: Denies threats or abuse. Denies injuries lb from another. Nutritional screening: No deficits noted. Assessment: 20:14 See Triage Assessment done by same RN. lb Vital Signs: 20:14 BP 149 / 96; Pulse 110; Resp 20; Temp 98; Pulse Ox 93% on R/A; Weight 108.86 kg; Height lb 5 ft. 10 in. (177.80 cm); Pain 8/10; 21:42 BP 137 / 82; Pulse 103; Resp 19; Pulse Ox 93% ; Pain 4/10; lb 20:14 Body Mass Index 34.44 (108.86 kg, 177.80 cm) lb ED Course: 19:42 Patient arrived in ED. ma1 19:43 Erwin Tolliver MD is Private Physician. ma1 19:48 Zach Luna MD is Attending Physician. az 19:55 Maira Richardson is Primary Nurse. lb 19:56 Triage completed. lb 20:14 Valuables Remains with patient Call light in reach. Side rails up X 1. lb 20:54 Zach Myers MD is Referral Physician. sc 21:41 Discontinued lock bleeding controlled. lb Administered Medications: 20:43 Drug: HYDROcodone-acetaminophen 5 mg-325 mg 1 tabs; Route: PO; lb 21:17 Follow up: Response: Pain is decreased lb 21:40 Drug: Bactrim (160 mg-800 mg (DS) 1 tabs; Route: PO; lb 21:41 Follow up: Response: Pharmacy closed - take home med pack lb 21:40 Drug: HYDROcodone-acetaminophen (5mg/325 mg) 1-2 tabs 1 tabs; Route: PO; lb 21:41 Follow up: Response: Pharmacy closed - take home med pack lb Intake: 21:41 PO: 200ml; Total: 200ml. lb Outcome: 20:55 Discharge ordered by . az 21:42 Discharged to home ambulatory. lb 21:42 Condition: improved 21:42 Discharge Assessment: Patient awake, alert and oriented x 3. No cognitive and/or functional deficits noted. Patient verbalized understanding of disposition instructions. 21:42 Instructed on discharge instructions, follow up and referral plans. no drinking with medication, no driving heavy equipment. 21:42 Instructed on 21:42 IV D/Jordin 21:44 Patient left the ED. lb Signatures: Leighann Serrano, RN RN Zach Reece MD MD az Maira Richardson [facility]
--- NOTE | 2016-07-11 21:45 | ER PHYSICIAN DOCUMENTATION ---
Physician Documentation [facility] Name:Bryant Santiago Age:65 yrs Sex:Male :1950 Arrival Date:07/11/2016 Time:19:39 Bed4 Private MD:Erwin Tolliver ED, Scott Disposition: 07/11/16 20:55 Discharged to Home/Self Care. Impression: Venous Insufficiency, Cellulitis of Leg. - Condition is Fair. - Discharge Instructions: CELLULITIS, VENOUS STASIS ULCER. - Prescriptions for Bactrim DS 160- 800 mg Oral Tablet - take 1 tablet by ORAL route every 12 hours for 7 days; 14 tablet. - Medical Reconciliation form form. - Follow up: Zach Myers MD; When: 1 - 2 days; Reason: Recheck today's complaints. - Problem is new. - Symptoms have improved. HPI: 07/11 20:50 This 65 yrs old Male presents to ER via Walk In with complaints of Leg Injury sc - LEFT, Leg Pain. 20:50 The patient presents with pain, that is acute, swelling. The complaints affect the sc lateral aspect of left calf, left calf and medial aspect of left calf. Context: multiple us to r/o dvt, h/o venous stasis and cellulitis and recurrent problems x one month. Onset: The symptom(s)/episode began/occurred 1 month(s) ago, and became worse. Associated signs and symptoms: Pertinent positives: calf tenderness, warmth, Pertinent negatives fever, nausea, rash, tingling. Historical: - Allergies: PENICILLINS; NSAIDS; - Home Meds: 1. lisinopril/hctz 2. Metoprolol Tartrate Oral 3. Spironolactone Oral 4. doxazosin oral - Tetanus: unknown. - Ebola Screening: : Patient negative for fever greater than or equal to 101.5 degrees Fahrenheit, and additional compatible Ebola Virus Disease symptoms. Patient denies exposure to infectious person. Patient denies travel to an Ebola-affected area in the 21 days before illness onset. No symptoms or risks identified at this time. . - Immunization history: Flu Vaccine None. - Social history: Smoking status: Patient states was never smoker of tobacco. Patient/guardian denies using alcohol. - Advance directive:: No. - Code Status:: Full code. ROS: 20:51 Constitutional: Negative for fever, chills, and weight loss. sc Eyes: Negative for injury, pain, redness, and discharge. Cardiovascular: Negative for chest pain, palpitations, and edema. Respiratory: Negative for shortness of breath, cough, wheezing, and pleuritic chest pain. Abdomen/GI: Negative for abdominal pain, nausea, vomiting, diarrhea, and constipation. Back: Negative for injury and pain. Skin: Negative for injury, rash, and discoloration. 20:51 Neuro: Negative for headache, weakness, numbness, tingling, and seizure. sc 20:51 MS/extremity: Positive for erythema, pain, swelling, Negative for injury or acute deformity, abrasion, decreased range of motion. Exam: Constitutional: This is a well developed, well nourished patient who is awake, alert, and in no acute distress. Head/Face: Normocephalic, atraumatic. Eyes: Pupils equal round and reactive to light, extra-ocular motions intact. Lids and lashes normal. Conjunctiva and sclera are non-icteric and not injected. Cornea within normal limits. Periorbital areas with no swelling, redness, or edema. Cardiovascular: Regular rate and rhythm with a normal S1 and S2. No gallops, murmurs, or rubs. Normal PMI, no JVD. No pulse deficits. Respiratory: Lungs have equal breath sounds bilaterally, clear to auscultation and percussion. No rales, rhonchi or wheezes noted. No increased work of breathing, no retractions or nasal flaring. Abdomen/GI: Soft, non-tender, with normal bowel sounds. No distension or tympany. No guarding or rebound. No evidence of tenderness throughout. 20:52 Back: No spinal tenderness. No costovertebral tenderness. Full range of motion. sc 20:52 Musculoskeletal/extremity: Extremities: grossly normal except: erythema, pain, ROM: intact in all extremities, Circulation is intact in all extremities. Sensation intact. healing wounds from venous stasis ulcers. Vital Signs: 20:14 BP 149 / 96; Pulse 110; Resp 20; Temp 98; Pulse Ox 93% on R/A; Weight 108.86 kg; Height lb 5 ft. 10 in. (177.80 cm); Pain 8/10; 21:42 BP 137 / 82; Pulse 103; Resp 19; Pulse Ox 93% ; Pain 4/10; lb 20:14 Body Mass Index 34.44 (108.86 kg, 177.80 cm) lb MDM: 19:48 Patient medically screened. sc 20:53 Differential diagnosis: presumed recurrent cellulitis, doubt dvt. Data reviewed: vital sc signs, nurses notes, lab test result(s), and as a result, I will discharge patient, administer antibiotics. Counseling: I had a detailed discussion with the patient and/or guardian regarding: the historical points, exam findings, and any diagnostic results supporting the discharge/admit diagnosis, the need for outpatient follow up, for a recheck, for a referral to a specialist. 07/11 20:46 Order name: CBC AUTO DIF, MDIF/RMOR IF IND; Complete Time: 20:49 EDMS 07/11 20:49 Interpretation: Abnormal: WHITE BLOOD COUNT 13.6. sc Dispensed Medications: 20:43 Drug: HYDROcodone-acetaminophen 5 mg-325 mg 1 tabs; Route: PO; lb 21:17 Follow up: Response: Pain is decreased lb 21:40 Drug: Bactrim (160 mg-800 mg (DS) 1 tabs; Route: PO; lb 21:41 Follow up: Response: Pharmacy closed - take home med pack lb 21:40 Drug: HYDROcodone-acetaminophen (5mg/325 mg) 1-2 tabs 1 tabs; Route: PO; lb 21:41 Follow up: Response: Pharmacy closed - take home med pack lb Signatures: Zach Luna MD MD mn Maira Richardson lb
== END 2016-07-11 21:45 | disposition home or self-care (01) ==
LOC: ER 19:39
DX: I87.2 Venous insufficiency (chronic) (peripheral) (principal); L03.116 Cellulitis of left lower limb; L97.929 Non-pressure chronic ulcer of unspecified part of left lower leg with unspecified severity; Z79.899 Other long term (current) drug therapy
CPT/HCPCS: 85025; 87040; 99283